=== PATIENT | female | born 1960 | race Caucasian/White ===

== ENCOUNTER 2020-03-16 12:52 | Inpatient (IN) | payer MEDICAID ==
[~2020-03-16] VITALS: Ht 149.9 cm; Wt 90.9 kg
[~2020-03-16 12:52] MED LIST: CALC-1051 PO; CHOL10002 PO; CITA40TA11 PO; OMEP20CA15 PO; ROPI1TAB2 PO; ZOLP10TA5 PO
[2020-03-16 13:34] LABS: BASOPHILS # (AUTO) 0.1 X10'3 (0-0.2); BASOPHILS % (AUTO) 0.3 % (0-1); EOSINOPHILS # (AUTO) 0.2 X10'3 (0-0.9); EOSINOPHILS % (AUTO) 0.8 % (0-6); HEMATOCRIT 51.6 % (35.0-45.0); LYMPHOCYTES # (AUTO) 1.7 X10'3 (1.1-4.8); LYMPHOCYTES % (AUTO) 6.8 % (21-51); MEAN CORPUSCULAR HEMOGLOBIN 28.1 PG (27.0-31.0); MEAN CORPUSCULAR HGB CONC 32.9 g/dL (33.0-36.5); MEAN CORPUSCULAR VOLUME 85.2 FL (78-98); MEAN PLATELET VOLUME 7.8 FL (7.4-10.4); MONOCYTES # (AUTO) 1.5 X10'3 (0-0.9); MONOCYTES % (AUTO) 6.1 % (2-12); NEUTROPHILS # (AUTO) 21.6 X10'3 (1.8-7.7); PLATELET COUNT 554 X10'3 (140-440); RED BLOOD COUNT 6.06 X10'6 (4.20-5.60); RED CELL DISTRIBUTION WIDTH 14.8 % (11.5-14.5)
[2020-03-16 13:41] LABS: WHITE BLOOD COUNT 25.2 X10'3 (4.5-11.0)
[2020-03-16 13:46] LABS: ALANINE AMINOTRANSFERASE 66 U/L (12-78); ALBUMIN 4.3 G/DL (3.4-5.0); ALKALINE PHOSPHATASE 155 IU/L (46-116); AMYLASE 53 U/L (25-115); ANION GAP 14 (8-16); ASPARTATE AMINO TRANSFERASE 42 U/L (10-37); BILIRUBIN,TOTAL 0.5 MG/DL (0.1-1.0); BLOOD UREA NITROGEN 18 MG/DL (7-18); BUN/CREATININE RATIO 14.8 (6.6-38.0); CALCIUM 9.6 MG/DL (8.5-10.1); CHLORIDE 106 MMOL/L (99-107); CREATININE 1.22 MG/DL (0.40-0.90); GLUCOSE 150 MG/DL (70-104); LIPASE 95 U/L (73-393); POTASSIUM 4.4 MMOL/L (3.5-5.1); SODIUM 141 MMOL/L (135-145); TOTAL PROTEIN 8.6 G/DL (6.4-8.2); eGFR 45 ML/MIN
[2020-03-16 13:57] LABS: PLATELET ESTIMATE INCREASED; TOTAL CELLS COUNTED 100
[2020-03-16] MEDS ORDERED: normal saline 1000ML IV soln IVB ONE (14:20)
[2020-03-16] MEDS ORDERED: ondansetron/PF 4mg/2ml inj IV ONE (14:20)
--- NOTE | 2020-03-16 14:40 | NUR ---
pt back in room [address], ns bolus continued and zofran given
[2020-03-16 15:53] LABS: CLARITY,URINE SLIGHTLY CLOUDY (Clear); COLOR,URINE YELLOW (Yellow); GLUCOSE, URINE NEGATIVE (Neg); KETONES,URINE NEGATIVE (Neg); LEUKOCYTE ESTERASE ,URINE NEGATIVE (Neg); NITRITES, URINE NEGATIVE (Neg); OCCULT BLOOD,URINE NEGATIVE (Neg); PH,URINE 5.5 (4.8-8.0); PROTEIN,URINE TRACE mg/dl (Neg); UROBILINOGEN,URINE 0.2 E.U/dL (0.2-1.0)
[2020-03-16 15:58] LABS: UA COLLECTION TYPE STRAIGHT CATH
[2020-03-16 15:59] LABS: HYALINE CASTS >30 /LPF (NEGATIVE); MUCUS STRANDS MODERATE /LPF (Neg); SQUAMOUS EPITHELIAL CELL,UR MODERATE /LPF (FEW)
[2020-03-16 16:00] LABS: BACTERIA,URINE 1+ /HPF (Neg); RBC,URINE 0-2 /HPF (0-2); WBC,URINE 0-4 /HPF (0-4)
--- NOTE | 2020-03-16 16:30 | NUR ---
PT ASKED IF SHE COULD TAKE HOME MEDS, OMEPRAZOL AND MIRAPEX. ed MD ASKED AND HE SAID PT COULD TAKE HOME MEDS.
[2020-03-16] MEDS ORDERED: BUPR150T8 PO ×2 (16:41)
[2020-03-16] MEDS ORDERED: DULO60CA45 PO (16:41)
[2020-03-16] MEDS ORDERED: magnesium 2GM in 50ml NS 50 ML IV PRN (17:20)
[2020-03-16] MEDS ORDERED: potassium Cl 20 mEq SR tablet PO PRN ×2 (17:20)
[2020-03-16] MEDS ORDERED: magnesium 4gm in 100ml NS 100 ML IV PRN (17:20)
[2020-03-16] MEDS ORDERED: morphine 2 MG/ML inj. syringe IV PRN (17:20)
[2020-03-16] MEDS ORDERED: magnesium Cl slow-release 64mg tablet PO PRN (17:20)
[2020-03-16] MEDS ORDERED: ondansetron/PF 4mg/2ml inj IV PRN (17:20)
[2020-03-16] MEDS ORDERED: potassium Cl 40MEQ/1/2NS 520ml 520 ML IV PRN ×2 (17:20)
[2020-03-16] MEDS ORDERED: acetaminophen 325mg tablet PO PRN (17:20)
[2020-03-16] MEDS ORDERED: PRAM0.5T3 PO (17:46)
[2020-03-16] MEDS ORDERED: OMEP40CA13 PO (17:46)
[2020-03-16] MEDS: normal saline 1000ml 1,000 ML IV SCH (17:49)
[2020-03-16] MEDS: K and/or MAG REPLACEMENT MC SCH (19:59)
[2020-03-16 21:20] VITALS: BP 125/75
--- NOTE | 2020-03-16 21:20 | NUR ---
PATIENT ADMITTED TO ROOM 351 FROM ER FOR NAUSEA, VOMITING, DIARRHEA AND CHOLELITHIASIS. PLACED COMFORTABLE IN BED. VITAL SIGNS TAKEN AND RECORDED.
[2020-03-17] VITALS: BP 103/69
[2020-03-17] MEDS: normal saline 1000ml 1,000 ML IV SCH ×2 (03:25→13:20)
[2020-03-17 06:18] LABS: BASOPHILS % (AUTO) 0.3 % (0-1); EOSINOPHILS # (AUTO) 0.3 X10'3 (0-0.9); HEMATOCRIT 40.1 % (35.0-45.0); HEMOGLOBIN 12.9 g/dl (12.0-16.0); LYMPHOCYTES # (AUTO) 2.3 X10'3 (1.1-4.8); LYMPHOCYTES % (AUTO) 24.8 % (21-51); MEAN CORPUSCULAR HEMOGLOBIN 27.8 PG (27.0-31.0); MEAN CORPUSCULAR HGB CONC 32.2 g/dL (33.0-36.5); MEAN CORPUSCULAR VOLUME 86.3 FL (78-98); MEAN PLATELET VOLUME 7.5 FL (7.4-10.4); MONOCYTES # (AUTO) 0.9 X10'3 (0-0.9); MONOCYTES % (AUTO) 9.8 % (2-12); NEUTROPHILS # (AUTO) 5.7 X10'3 (1.8-7.7); NEUTROPHILS % (AUTO) 62.1 % (42-75); PLATELET COUNT 291 X10'3 (140-440); RED BLOOD COUNT 4.65 X10'6 (4.20-5.60); RED CELL DISTRIBUTION WIDTH 14.8 % (11.5-14.5); WHITE BLOOD COUNT 9.2 X10'3 (4.5-11.0)
[2020-03-17 06:29] LABS: ALBUMIN 3.1 G/DL (3.4-5.0); ANION GAP 8 (8-16); BLOOD UREA NITROGEN 12 MG/DL (7-18); BUN/CREATININE RATIO 13.8 (6.6-38.0); CALCIUM 8.5 MG/DL (8.5-10.1); CHLORIDE 110 MMOL/L (99-107); CREATININE 0.87 MG/DL (0.40-0.90); GLUCOSE 109 MG/DL (70-104); MAGNESIUM 1.7 MG/DL (1.5-2.4); POTASSIUM 4.1 MMOL/L (3.5-5.1); SODIUM 144 MMOL/L (135-145); TOTAL CARBON DIOXIDE 26.5 MMOL/L (24-32); eGFR 67 ML/MIN
--- NOTE | 2020-03-17 06:30 | NUR ---
Problems reprioritized. Patient report given, questions answered & plan of care reviewed with HENNY CHRISTIAN.
[2020-03-17 07:00] VITALS: BP 114/60
[2020-03-17] MEDS ORDERED: buPROPion SR 150mg tablet PO SCH (08:00)
[2020-03-17] MEDS: K and/or MAG REPLACEMENT MC SCH (08:00)
[2020-03-17] MEDS ORDERED: pantoprazole 40mg Tablet.DR PO SCH (08:00)
[2020-03-17] MEDS ORDERED: pramipexole 0.25mg tablet PO SCH (08:00)
[2020-03-17] MEDS ORDERED: duloxetine 30mg CAPSULE.DR PO SCH (08:00)
[2020-03-17 11:00] VITALS: BP 115/57
--- NOTE | 2020-03-17 14:00 | NUR ---
PAGER ID: [phone] MESSAGE: Tanisha-[facility] 2879 Re: Jaci Tucker has had no diarrhea or abdominal pain and has tolerated her lunch regular diet
--- NOTE | 2020-03-17 15:15 | NUR ---
PAGER ID: [phone] MESSAGE: Tanisha Surg 2421 Re: 351 Jaci are you discharging her There is a limited time for her ride from [facility]. Please call so I can let her know
[2020-03-17] MEDS ORDERED: METO5TAB85 PO (15:41)
[2020-03-17] MEDS ORDERED: ONDA4TAB6 PO (16:16)
--- NOTE | 2020-03-17 17:30 | NUR ---
Patients discharge instructions reviewed with patient and patient verbalized understanding. Patients IV dc'd cannula intact. Patients medications were retrieved and returned to patient. Patient states she has all her belongings and was wheeled out via wheel to vehicle with recycling collections driver from [facility] who will also take her to get her medications.
== END 2020-03-17 17:27 | disposition home or self-care (01) ==
LOC: ER 12:53 → ED HOLD 17:18 → SUR 3N 21:10
PROVIDERS: ADMIT Internal Medicine; ATTEND Internal Medicine
DX: K80.20 Calculus of gallbladder without cholecystitis without obstruction (principal); D72.829 Elevated white blood cell count, unspecified; E86.0 Dehydration; E87.2 Acidosis; J44.9 Chronic obstructive pulmonary disease, unspecified; K76.0 Fatty (change of) liver, not elsewhere classified; N17.9 Acute kidney failure, unspecified; Z66 Do not resuscitate; Z80.6 Family history of leukemia; Z87.891 Personal history of nicotine dependence; Z90.49 Acquired absence of other specified parts of digestive tract; K21.9 Gastro-esophageal reflux disease without esophagitis; F41.9 Anxiety disorder, unspecified; F32.9 Major depressive disorder, single episode, unspecified
CPT/HCPCS: 36415; 74176; 80048; 80053; 81001; 82150; 83605; 83690; 83735; 84145; 85007; 85025; 87040; 87081; 93308; 99285; G0378; J2405; J7030

== ENCOUNTER 2020-04-23 19:23 | Emergency (ER) | payer MEDICAID ==
[~2020-04-23] VITALS: Ht 149.9 cm; Wt 80.7 kg
[~2020-04-23 19:23] MED LIST changes: +BUPR150T8 PO; -CALC-1051 PO; -CHOL10002 PO; -CITA40TA11 PO; +DULO60CA45 PO; +METO5TAB85 PO; -OMEP20CA15 PO; +OMEP40CA13 PO; +ONDA4TAB6 PO; +PRAM0.5T3 PO; -ROPI1TAB2 PO; -ZOLP10TA5 PO
[2020-04-23 21:31] VITALS: BP 143/91
[2020-04-23] MEDS ORDERED: ibuprofen tablet 400 MG TABLET PO ONE (22:30)
== END 2020-04-23 22:42 | disposition home or self-care (01) ==
LOC: ER 19:24
DX: R07.81 Pleurodynia (principal)
CPT/HCPCS: 71045; 93005; 99283

== ENCOUNTER 2022-05-22 11:18 | Emergency (ER) | payer MEDICAID ==
[~2022-05-22] VITALS: Ht 149.9 cm; Wt 90.9 kg
[~2022-05-22 11:18] MED LIST changes: -DULO60CA45 PO; +DULO60CA59 PO; -OMEP40CA13 PO; +OMEP40CA21 PO
[2022-05-22 12:02] LABS: BASOPHILS # (AUTO) 0.1 X10'3 (0-0.2); BASOPHILS % (AUTO) 0.6 % (0-1); EOSINOPHILS # (AUTO) 0.2 X10'3 (0-0.9); EOSINOPHILS % (AUTO) 1.7 % (0-6); HEMATOCRIT 44.7 % (35.0-45.0); HEMOGLOBIN 14.4 g/dl (12.0-16.0); LYMPHOCYTES # (AUTO) 1.7 X10'3 (1.1-4.8); MEAN CORPUSCULAR HEMOGLOBIN 26.7 PG (27.0-31.0); MEAN CORPUSCULAR HGB CONC 32.2 g/dL (33.0-36.5); MEAN PLATELET VOLUME 7.6 FL (7.4-10.4); MONOCYTES # (AUTO) 0.7 X10'3 (0-0.9); MONOCYTES % (AUTO) 6.6 % (2-12); NEUTROPHILS # (AUTO) 7.5 X10'3 (1.8-7.7); NEUTROPHILS % (AUTO) 74.1 % (42-75); PLATELET COUNT 252 X10'3 (140-440); RED BLOOD COUNT 5.38 X10'6 (4.20-5.60); RED CELL DISTRIBUTION WIDTH 16.2 % (11.5-14.5); WHITE BLOOD COUNT 10.1 X10'3 (4.5-11.0)
--- NOTE | 2022-05-22 12:06 | NUR ---
Patient son Frank Beatty. Patient did not know her son's cellphone number. Patient stated they have not talked to each other. Patient also stated her only way she was able to contact her son was through a [employer] or [employer]
[2022-05-22 12:27] LABS: ALANINE AMINOTRANSFERASE 37 U/L (12-78); ALBUMIN 3.5 G/DL (3.4-5.0); ALBUMIN/GLOBULIN RATIO 0.8 (1.1-1.5); ALKALINE PHOSPHATASE 212 IU/L (46-116); ANION GAP 6 (8-16); ASPARTATE AMINO TRANSFERASE 29 U/L (10-37); BILIRUBIN,TOTAL 0.4 MG/DL (0.1-1.0); BLOOD UREA NITROGEN 10 MG/DL (7-18); BUN/CREATININE RATIO 13.3 (10.0-20.0); CALCIUM 9.5 MG/DL (8.5-10.1); CHLORIDE 104 MMOL/L (99-107); CREATININE 0.75 MG/DL (0.40-0.90); GLUCOSE 122 MG/DL (70-104); POTASSIUM 4.6 MMOL/L (3.5-5.1); SODIUM 140 MMOL/L (135-145); TOTAL CARBON DIOXIDE 29.6 MMOL/L (24-32); TOTAL PROTEIN 7.7 G/DL (6.4-8.2); eGFR 79 ML/MIN
[2022-05-22] MEDS ORDERED: albuterol 2.5 MG/3 ML nebule CONTNEB PRN (12:45)
[2022-05-22] MEDS ORDERED: methylPREDNISolone sod succ 125mg/2ml vial IV ONE (12:45)
[2022-05-22] MEDS ORDERED: morphine 4 MG/ML inj SYRINge IV ONE (12:45)
--- NOTE | 2022-05-22 12:49 | NUR ---
HOSEA Hutchison notified about patient wish to be DNR
--- NOTE | 2022-05-22 13:26 | NUR ---
Roommate/friend Delaney [phone] available for picker packer; can received update about patient
[2022-05-22 14:26] VITALS: BP 145/79
[2022-05-22] MEDS ORDERED: PRED10TA23 PO (15:24)
[2022-05-22] MEDS ORDERED: ATI1T PO (15:24)
[2022-05-22] MEDS ORDERED: LORazepam 1 MG tablet PO ONE (16:45)
[2022-05-22] MEDS ORDERED: HYDROcodone/acetaminophen 10/325mg tab PO ONE (16:45)
--- NOTE | 2022-05-22 17:11 | NUR ---
Spoke to Teresa Torre, patient's friend about picking up patient, bring the home O2 from home . Teresa confirmed to me she will case picker the patient and take care of the prescription. Teresa was instructed to meet patient at the waiting lobby and that patient will be on a wheelchair with portable oxygen with her while waiting for her ride.
== END 2022-05-22 17:17 | disposition home or self-care (01) ==
LOC: ER 11:18
DX: J44.9 Chronic obstructive pulmonary disease, unspecified (principal); F41.9 Anxiety disorder, unspecified; I10 Essential (primary) hypertension; K21.9 Gastro-esophageal reflux disease without esophagitis; G89.29 Other chronic pain; F32.9 Major depressive disorder, single episode, unspecified; F12.90 Cannabis use, unspecified, uncomplicated; F15.90 Other stimulant use, unspecified, uncomplicated; Z90.49 Acquired absence of other specified parts of digestive tract; Z98.890 Other specified postprocedural states; Z59.00 Homelessness unspecified; Z56.0 Unemployment, unspecified; Z88.0 Allergy status to penicillin; Z79.899 Other long term (current) drug therapy
CPT/HCPCS: 36415; 71045; 80053; 83605; 83880; 84484; 85025; 93005; 94640; 94644; 96374; 96375; 99285; J2270; J2930; A7015

== ENCOUNTER 2022-09-14 12:58 | Inpatient (IN) | payer MEDICAID ==
[~2022-09-14] VITALS: Ht 149.9 cm; Wt 88.6 kg
[~2022-09-14 12:58] MED LIST changes: +ALBUTEROL INH; -BUPR150T8 PO; +DOXY-224 PO; +ESZO2TAB31 PO; +METH-375; +OLAN5TAB75 PO; -PRAM0.5T3 PO; +PRAM1TAB6 PO; +PRAZ5CAP2; +PRED10TA; +PROC5TAB10; +PROP40TA72 PO
[2022-09-14] MEDS ORDERED: morphine 4 MG/ML inj SYRINge IV PRN (14:55)
[2022-09-14 15:40] LABS: BASOPHILS % (AUTO) 0.1 % (0-1); EOSINOPHILS % (AUTO) 0.3 % (0-6); HEMATOCRIT 39.5 % (35.0-45.0); HEMOGLOBIN 12.9 g/dl (12.0-16.0); LYMPHOCYTES # (AUTO) 1.9 X10'3 (1.1-4.8); LYMPHOCYTES % (AUTO) 13.3 % (21-51); MEAN CORPUSCULAR HEMOGLOBIN 28.2 PG (27.0-31.0); MEAN CORPUSCULAR HGB CONC 32.7 g/dL (33.0-36.5); MEAN CORPUSCULAR VOLUME 86.1 FL (78-98); MEAN PLATELET VOLUME 7.7 FL (7.4-10.4); MONOCYTES # (AUTO) 1.4 X10'3 (0-0.9); MONOCYTES % (AUTO) 9.6 % (2-12); NEUTROPHILS # (AUTO) 11.1 X10'3 (1.8-7.7); NEUTROPHILS % (AUTO) 76.7 % (42-75); PLATELET COUNT 437 X10'3 (140-440); RED BLOOD COUNT 4.59 X10'6 (4.20-5.60); RED CELL DISTRIBUTION WIDTH 14.7 % (11.5-14.5); WHITE BLOOD COUNT 14.5 X10'3 (4.5-11.0)
[2022-09-14 15:43] LABS: APTT 28 SECONDS (22-32)
[2022-09-14 15:45] LABS: ALANINE AMINOTRANSFERASE 34 U/L (12-78); ALBUMIN 2.4 G/DL (3.4-5.0); ALBUMIN/GLOBULIN RATIO 0.5 (1.1-1.5); ALKALINE PHOSPHATASE 182 IU/L (46-116); ANION GAP 13 (8-16); ASPARTATE AMINO TRANSFERASE 55 U/L (10-37); BILIRUBIN,TOTAL 0.6 MG/DL (0.1-1.0); BLOOD UREA NITROGEN 11 MG/DL (7-18); BUN/CREATININE RATIO 18.6 (10.0-20.0); CALCIUM 9.4 MG/DL (8.5-10.1); CHLORIDE 96 MMOL/L (99-107); CREATININE 0.59 MG/DL (0.40-0.90); GLUCOSE 95 MG/DL (70-104); POTASSIUM 3.5 MMOL/L (3.5-5.1); SODIUM 135 MMOL/L (135-145); TOTAL CARBON DIOXIDE 25.6 MMOL/L (24-32); eGFR > 90 ML/MIN
[2022-09-14] MEDS ORDERED: morphine 2 MG/ML inj. syringe IV PRN (17:55)
[2022-09-14] MEDS ORDERED: mag hydrox/Alum hydrox/simeth 30ml oral suspension PO PRN (17:55)
[2022-09-14] MEDS ORDERED: acetaminophen 325mg tablet PO PRN (17:55)
[2022-09-14] MEDS ORDERED: ondansetron/PF 4mg/2ml inj IV PRN (17:55)
[2022-09-14] MEDS ORDERED: morphine ORAL 5MG/0.25 ML (Conc. morphine) oral syringe PO PRN (17:55)
[2022-09-14 18:50] LABS: CLARITY,URINE SLIGHTLY CLOUDY (Clear); COLOR,URINE YELLOW (Yellow); GLUCOSE, URINE NEGATIVE (Neg); KETONES,URINE >=80 mg/dl (Neg); LEUKOCYTE ESTERASE ,URINE NEGATIVE (Neg); NITRITES, URINE NEGATIVE (Neg); OCCULT BLOOD,URINE NEGATIVE (Neg); PROTEIN,URINE TRACE mg/dl (Neg)
[2022-09-14 18:52] LABS: UA COLLECTION TYPE STRAIGHT CATH
[2022-09-14 19:01] LABS: WBC,URINE 0-4 /HPF (0-4)
[2022-09-14 19:02] LABS: BACTERIA,URINE FEW /HPF (Neg)
[2022-09-14 19:24] LABS: HYALINE CASTS 0-3 /LPF (NEGATIVE)
[2022-09-14 19:39] LABS: SQUAMOUS EPITHELIAL CELL,UR MANY /LPF (FEW)
[2022-09-14 19:40] LABS: MUCUS STRANDS MANY /LPF (Neg)
[2022-09-14] MEDS: docusate sod 100mg capsule PO SCH (20:00)
--- NOTE | 2022-09-14 20:30 | NUR ---
Patient in room ORTHO 4007. I have received report from Luisa RN and had the opportunity to ask questions and assume patient care.
[2022-09-14] MEDS: morphine 10mg/0.5ml (conc. morphine) oral syringe PO PRN (21:30)
[2022-09-14 23:58] VITALS: RESP 18; O2SAT 91
[2022-09-15 00:26] VITALS: O2SAT 91
[2022-09-15] MEDS: morphine 10mg/0.5ml (conc. morphine) oral syringe PO PRN ×5 (01:53→22:54)
[2022-09-15] MEDS: morphine 2 MG/ML inj. syringe IV PRN ×3 (03:35→17:26)
[2022-09-15] MEDS: magnesium hydroxide 30ml (MOM) UD suspension PO PRN (04:55)
--- NOTE | 2022-09-15 06:04 | NUR ---
Problems reprioritized. Patient report given, questions answered & plan of care reviewed with Anna RIVERA.
--- NOTE | 2022-09-15 06:17 | NUR ---
Patient in room ORTHO 4007. I have received report from GINO Kat and had the opportunity to ask questions and assume patient care.
[2022-09-15] MEDS: docusate sod 100mg capsule PO SCH ×2 (07:45→20:11)
[2022-09-15] MEDS: nystatin 15 GM powder TP SCH ×3 (07:50→20:11)
[2022-09-15 08:00] VITALS: RESP 20; O2SAT 90
--- NOTE | 2022-09-15 08:44 | NUR ---
Noted pt is DNR with comfort care. No documented BM since admit though pt receiving routine and PRN bowel care. Will continue to follow per LOS. Recommendations: 1) Bowel care per comfort care measures Addendum: 09/15/22 at [address] Amended: Links added.
[2022-09-15 10:00] VITALS: BP 158/89; PULSE 74; RESP 18; TEMP 97.7; O2SAT 94
--- NOTE | 2022-09-15 18:00 | NUR ---
Patient in room ORTHO 4007. I have received report from GINO Paredes and had the opportunity to ask questions and assume patient care.
--- NOTE | 2022-09-15 18:17 | NUR ---
Problems reprioritized. Patient report given, questions answered & plan of care reviewed with GINO Sotomayor.
[2022-09-15 22:00] VITALS: BP 106/64; PULSE 103; RESP 16; TEMP 97.9; O2SAT 92
[2022-09-16] MEDS: morphine 2 MG/ML inj. syringe IV PRN ×3 (01:42→16:15)
[2022-09-16] MEDS: morphine 10mg/0.5ml (conc. morphine) oral syringe PO PRN ×2 (05:52→12:42)
--- NOTE | 2022-09-16 06:21 | NUR ---
Patient in room ORTHO 4007. I have received report from GINO Sotomayor and had the opportunity to ask questions and assume patient care. NAD at this time.
--- NOTE | 2022-09-16 06:25 | NUR ---
Problems reprioritized. Patient report given, questions answered & plan of care reviewed with NICOLE Valencia.
[2022-09-16 08:00] VITALS: RESP 16; O2SAT 97
[2022-09-16] MEDS: nystatin 15 GM powder TP SCH ×3 (08:07→20:36)
[2022-09-16] MEDS: docusate sod 100mg capsule PO SCH ×2 (08:07→20:36)
[2022-09-16 10:00] VITALS: BP 119/54; PULSE 16; RESP 16; TEMP 98.1; O2SAT 92
[2022-09-16] MEDS: magnesium hydroxide 30ml (MOM) UD suspension PO PRN (13:11)
[2022-09-16] MEDS ORDERED: methylnaltrexone br 12mg/0.6ml inj***SubQ only SQ PRN (14:55)
[2022-09-16] MEDS ORDERED: bisacodyl 5mg tablet.DR PO PRN (14:55)
[2022-09-16] MEDS ORDERED: bisacodyl 10mg suppository rectal RC PRN (14:55)
--- NOTE | 2022-09-16 18:30 | NUR ---
Patient in room ORTHO 4007. I have received report from MAICOL and had the opportunity to ask questions and assume patient care.
--- NOTE | 2022-09-16 18:40 | NUR ---
Problems reprioritized. Patient report given, questions answered & plan of care reviewed with NICOLE Devi. No acute distress.
[2022-09-16 19:00] VITALS: RESP 20; O2SAT 96
[2022-09-16] MEDS: LORazepam 0.5 MG tablet PO PRN (19:03)
[2022-09-16] MEDS: oxyCODONE/APAP 5-325mg tablet PO PRN (19:07)
[2022-09-16] MEDS: polyethylene glycol 3350 17gm powd pack PO SCH (20:36)
[2022-09-16 22:00] VITALS: BP 118/68; PULSE 94; RESP 16; TEMP 98.6; O2SAT 96
[2022-09-17] MEDS: LORazepam 0.5 MG tablet PO PRN ×2 (01:56→21:15)
[2022-09-17] MEDS: oxyCODONE/APAP 5-325mg tablet PO PRN ×2 (01:58→07:50)
[2022-09-17] MEDS: morphine 10mg/0.5ml (conc. morphine) oral syringe PO PRN ×4 (02:35→17:46)
[2022-09-17 07:00] VITALS: RESP 18; O2SAT 97
[2022-09-17] MEDS: nystatin 15 GM powder TP SCH ×3 (07:50→21:16)
[2022-09-17] MEDS: docusate sod 100mg capsule PO SCH ×2 (07:50→20:11)
[2022-09-17 10:00] VITALS: BP 105/57; PULSE 83; RESP 18; TEMP 97.8; O2SAT 97
--- NOTE | 2022-09-17 14:41 | NUR ---
PRESSURE ULCER EDUCATION: DEFINITION: A pressure ulcer is an area of skin that breaks down when you stay in one position too long. The constant pressure against the skin reduces the blood flow to that area and the affected tissue dies. CAUSES: "Being bedridden or in a wheelchair "Fragile skin "Having a chronic condition, such as diabetes or vascular disease "Inability to move certain parts of your body without assistance "Older age "Incontinence of urine or stool SYMPTOMS: "A reddened area that DOES NOT turn white when pressed on - this can be the beginning of a pressure ulcer "A blister, deep sore or a crater - these can be advanced pressure ulcers FIRST AID: "Relieve the pressure on this area "Keep the area clean and dry "Call your primary doctor if you see any of the above symptoms "DO NOT massage the area "DO NOT use a donut shaped or ring shaped pillow- these actually interfere with the blood flow and cause complications PREVENTION: "Check for pressure ulcers everyday "Change position at least every two hours to relieve pressure "Use items that help relieve pressure- pillows, sheepskin, foam padding, and powders. "Keep skin clean and dry "Eat healthy well balanced meals "Exercise daily IF YOU SEE ANY OF THESE SYMPTOMS WHILE IN THE HOSPITAL - TELL YOUR NURSE IMMEDIATELY. IF YOU SEE ANY OF THESE SYMPTOMS WHILE AT HOME OR HAVE ANY QUESTIONS OR CONCERNS ABOUT PRESSURE ULCERS - CALL YOUR PRIMARY DOCTOR IMMEDIATELY. Addendum: 09/17/22 at 1441 by Mere Vogel LVN Amended: Links added.
--- NOTE | 2022-09-17 17:00 | NUR ---
I have reviewed and agree with interventions, assessments, and documentation by Reggie Cooper LVN.
[2022-09-17 18:00] VITALS: BP 112/60; PULSE 85; RESP 18; TEMP 97.9; O2SAT 96
--- NOTE | 2022-09-17 18:00 | NUR ---
Patient in room ORTHO 4007. I have received report from NICOLE Paredes and had the opportunity to ask questions and assume patient care.
--- NOTE | 2022-09-17 18:19 | NUR ---
Problems reprioritized. Patient report given, questions answered & plan of care reviewed with GINO Sotomayor.
[2022-09-17] MEDS: polyethylene glycol 3350 17gm powd pack PO SCH (20:11)
[2022-09-17] MEDS: oxyCODONE/APAP 10/325mg tablet PO PRN (20:11)
[2022-09-17 22:00] VITALS: BP 105/61; PULSE 61; RESP 16; TEMP 98.6; O2SAT 93
[2022-09-18] MEDS: morphine 10mg/0.5ml (conc. morphine) oral syringe PO PRN ×3 (00:30→21:49)
--- NOTE | 2022-09-18 06:14 | NUR ---
Problems reprioritized. Patient report given, questions answered & plan of care reviewed with NICOLE Paredes.
--- NOTE | 2022-09-18 06:15 | NUR ---
Patient in room ORTHO 4007. I have received report from GINO Sotomayor and had the opportunity to ask questions and assume patient care.
[2022-09-18] MEDS: oxyCODONE/APAP 10/325mg tablet PO PRN ×4 (06:23→20:37)
[2022-09-18 07:00] VITALS: RESP 16; O2SAT 94
[2022-09-18] MEDS: nystatin 15 GM powder TP SCH ×3 (07:24→21:00)
[2022-09-18] MEDS: docusate sod 100mg capsule PO SCH ×2 (07:24→20:00)
[2022-09-18 10:00] VITALS: BP 105/63; PULSE 84; RESP 16; TEMP 98.1; O2SAT 94
--- NOTE | 2022-09-18 18:00 | NUR ---
I have reviewed and agree with the interventions, assessments, and documentation by Reggie Cooper LVN.
--- NOTE | 2022-09-18 18:29 | NUR ---
Problems reprioritized. Patient report given, questions answered & plan of care reviewed with GINO Dumont.
[2022-09-18 19:00] VITALS: RESP 18; O2SAT 93
[2022-09-18] MEDS: polyethylene glycol 3350 17gm powd pack PO SCH (20:36)
[2022-09-18] MEDS: LORazepam 0.5 MG tablet PO PRN (21:48)
[2022-09-18 22:00] VITALS: BP 117/57; PULSE 95; RESP 14; TEMP 98; O2SAT 92
[2022-09-19] MEDS: morphine 10mg/0.5ml (conc. morphine) oral syringe PO PRN (00:27)
--- NOTE | 2022-09-19 06:15 | NUR ---
Patient in room ORTHO 4007. I have received report from GINO Dumont and had the opportunity to ask questions and assume patient care.
[2022-09-19 07:00] VITALS: RESP 16; O2SAT 93
[2022-09-19] MEDS: docusate sod 100mg capsule PO SCH (07:22)
[2022-09-19] MEDS: nystatin 15 GM powder TP SCH (07:23)
[2022-09-19] MEDS: oxyCODONE/APAP 10/325mg tablet PO PRN (07:23)
[2022-09-19 10:00] VITALS: BP 96/68; PULSE 83; RESP 18; TEMP 98.1; O2SAT 96
--- NOTE | 2022-09-19 11:00 | NUR ---
I have reviewed and agree with interventions, assessments, and documentation by Reggie Cooper LVN.
--- NOTE | 2022-09-19 12:00 | NUR ---
Pt stable for transfer. Patient had no IV prior to d/c. Report called over to [facility] [place] and spoke with NICOLE Persaud to give report. Patient left with all belongings. Patient left on a gurney via [facility] to go to [facility] [place].
== END 2022-09-19 11:15 | DRG 343 ==
LOC: ER 12:59 → ED HOLD 17:53 → ORTHO 4S 20:37
PROVIDERS: ADMIT Family Medicine; ATTEND Family Medicine
DX: M84.454A Pathological fracture, pelvis, initial encounter for fracture (principal); C79.51 Secondary malignant neoplasm of bone; C34.90 Malignant neoplasm of unspecified part of unspecified bronchus or lung; Z66 Do not resuscitate; Z51.5 Encounter for palliative care; J44.9 Chronic obstructive pulmonary disease, unspecified; E03.9 Hypothyroidism, unspecified; F17.210 Nicotine dependence, cigarettes, uncomplicated; F15.90 Other stimulant use, unspecified, uncomplicated; F32.A Depression, unspecified; F41.9 Anxiety disorder, unspecified; R09.02 Hypoxemia; W18.39XA Other fall on same level, initial encounter; G89.29 Other chronic pain; K21.9 Gastro-esophageal reflux disease without esophagitis; M89.58 Osteolysis, other site; M54.9 Dorsalgia, unspecified; I10 Essential (primary) hypertension; M81.0 Age-related osteoporosis without current pathological fracture; Z63.8 Other specified problems related to primary support group; Z80.6 Family history of leukemia; Z85.118 Personal history of other malignant neoplasm of bronchus and lung; Z90.49 Acquired absence of other specified parts of digestive tract; Z56.0 Unemployment, unspecified; Z59.00 Homelessness unspecified; Z88.0 Allergy status to penicillin; Z79.899 Other long term (current) drug therapy; Y93.89 Activity, other specified; Y92.89 Other specified places as the place of occurrence of the external cause; Y99.8 Other external cause status
CPT/HCPCS: 36415; 71045; 73502; 73700; 80053; 81001; 85025; 85610; 85730; 86885; 86900; 86901; 99285; A4314; A4615; A4620; G0378; J2212; J2270; J2405; J7030